=== PATIENT | male | born 1950 | race Hispanic/Latino ===

== ENCOUNTER 2020-11-22 17:52 | Emergency (ER) | payer SELFPAY ==
[2020-11-22 20:35] LABS: SARS-COV-2 RT PCR POSITIVE (NEGATIVE)
--- NOTE | 2020-11-22 22:03 | ER ---
Nurse's Notes [facility] [place] Name: Collin Peña Age: 70 yrs Sex: Male : 1950 Arrival Date: 11/22/2020 Time: 17:58 Bed Waiting Private MD: Diagnosis: Coronavirus infection, unspecified Presentation: 11/22 18:41 Chief complaint: Patient states: Congestion and decreased appetite that began 1 week ss ago. Pt reports mild cough. Coronavirus screen: Client denies travel out of the [place] in the last 14 days. Client presents with at least one sign or symptom that may indicate coronavirus-19. Standard/surgical mask placed on the client. Provider contacted for isolation considerations. Ebola Screen: Patient denies exposure to infectious person. Patient denies travel to an Ebola-affected area in the 21 days before illness onset. Initial Sepsis Screen: Does the patient meet any 2 criteria? No. Patient's initial sepsis screen is negative. Does the patient have a suspected source of infection? No. Patient's initial sepsis screen is negative. Risk Assessment: Do you want to hurt yourself or someone else? Patient reports no desire to harm self or others. Onset of symptoms was November 12, 2020. 18:41 Method Of Arrival: Ambulatory ss 18:41 Acuity: AMY 4 ss Historical: - Allergies: 18:42 No Known Allergies; ss - Home Meds: 18:42 None [Active]; ss - PMHx: 18:42 None; ss - PSHx: 18:42 None; ss - Immunization history:: Adult Immunizations up to date, Client reports receiving the 2nd dose of the Covid vaccine. - Social history:: Smoking status: Patient denies any tobacco usage or history of. Vital Signs: 18:43 BP 114 / 81; Pulse 103; Resp 16; Temp 98.1(TE); Pulse Ox 100% on R/A; Weight 63.5 kg; ss Pain 0/10; ED Course: 17:58 Patient arrived in ED. ds1 18:42 Triage completed. ss 18:42 Arm band placed on right wrist. ss 21:05 Aura Shrestha FNP-C [facility]. kb 21:05 Humberto Montoya MD is Attending Physician. kb Administered Medications: No medications were administered Outcome: 22:02 Discharge ordered by . azar 22:21 Patient left the ED. kb Signatures: Aura Shrestha, SHOP SUPERINTENDENT-C SHOP SUPERINTENDENT-Mariam Nelson ds1 Ingris Leos, RN RN ss
--- NOTE | 2020-11-22 22:03 | EDPHYS ---
Physician Documentation [facility] Name: Collin Peña Age: 70 yrs Sex: Male : 1950 Arrival Date: 11/22/2020 Time: 17:58 Bed Waiting Private MD: ED Physician Humberto Montoya HPI: 11/22 22:18 This 70 yrs old Male presents to ER via Ambulatory with complaints of kb Congestion, Decreased Appetite. 22:18 The patient or guardian reports cough, that is intermittent, described as mild, flu kb symptoms, no appetite. Onset: The symptoms/episode began/occurred 1 week(s) ago. Severity of symptoms: At their worst the symptoms were mild, in the emergency department the symptoms are unchanged. Modifying factors: The symptoms are alleviated by nothing, the symptoms are aggravated by nothing. Associated signs and symptoms: Pertinent positives: rhinorrhea, Pertinent negatives: chest pain, diarrhea, ear ache, fever, nausea, sore throat, vomiting. The patient has not experienced similar symptoms in the past. The patient has not recently seen a physician. Patient reports mild cough, runny nose/congestion, and decreased appetite for approximately 1 week. States he came to get checked for Covid.. Historical: - Allergies: 18:42 No Known Allergies; ss - Home Meds: 18:42 None [Active]; ss - PMHx: 18:42 None; ss - PSHx: 18:42 None; ss - Immunization history:: Adult Immunizations up to date, Client reports receiving the 2nd dose of the Covid vaccine. - Social history:: Smoking status: Patient denies any tobacco usage or history of. ROS: 22:18 Constitutional: Negative for fever, chills, and weight loss. kb 22:18 Constitutional: Positive for decreased appetite. 22:18 ENT: Positive for rhinorrhea, sinus congestion. 22:18 Respiratory: Positive for cough, Negative for dyspnea on exertion, hemoptysis, orthopnea, pleurisy, shortness of breath, sputum production, wheezing. 22:18 All other systems are negative. Exam: 22:18 Constitutional: This is a well developed, well nourished patient who is awake, alert, kb and in no acute distress. Head/Face: Normocephalic, atraumatic. ENT: Moist Mucous membranes Respiratory: Respirations even and unlabored. No increased work of breathing, no retractions or nasal flaring. Skin: Warm, dry with normal turgor. Normal color. MS/ Extremity: Pulses equal, no cyanosis. Neurovascular intact. Full, normal range of motion. Neuro: Awake and alert, GCS 15, oriented to person, place, time, and situation. Moves all extremities. Normal gait. Psych: Awake, alert, with orientation to person, place and time. Behavior, mood, and affect are within normal limits. Vital Signs: 18:43 BP 114 / 81; Pulse 103; Resp 16; Temp 98.1(TE); Pulse Ox 100% on R/A; Weight 63.5 kg; ss Pain 0/10; MDM: 22:02 Patient medically screened. kb 22:05 Data reviewed: vital signs, nurses notes. Data interpreted: Pulse oximetry: on room air kb is 100 %. Interpretation: normal. Counseling: I had a detailed discussion with the patient and/or guardian regarding: the historical points, exam findings, and any diagnostic results supporting the discharge/admit diagnosis, lab results, the need for outpatient follow up, a family practitioner, to return to the emergency department if symptoms worsen or persist or if there are any questions or concerns that arise at home. 11/22 18:46 Order name: Flu ss 11/22 20:36 Order name: COVID-19/FLU A+B; Complete Time: 21:05 EDMS Administered Medications: No medications were administered Disposition: 11/23 05:07 Co-signature as Attending Physician, Humberto Montoya MD. [email or web address] Disposition Summary: 11/22/20 22:02 Discharge Ordered Location: Home kb Condition: Stable kb Diagnosis - Coronavirus infection, unspecified kb Followup: kb - With: Emergency Department - When: As needed - Reason: Worsening of condition Followup: kb - With: Private Physician - When: 2 - 3 days - Reason: Recheck today's complaints, Continuance of care, Re-evaluation by your physician Discharge Instructions: - Discharge Summary Sheet kb - Viral Respiratory Infection, [id number] kb - COVID-19 kb Forms: - Medication Reconciliation Form kb - Thank You Letter kb - Antibiotic Education kb - Prescription Opioid Use kb Signatures: Dispatcher [employer] EDMS Aura Shrestha FNP-C FNP-Ckb Smirch, Shelby, RN RN ss Humberto Montoya MD MD [email or web address] Corrections: (The following items were deleted from the chart) 11/22 19:42 18:46 CORONAVIRUS+ ordered. EDMS EDMS 19:43 18:46 Influenza Screen (A ordered. EDMS EDMS
[2020-11-22 23:26] VITALS: BP 114/81; TEMP 98.1; O2SAT 100
== END 2020-11-22 22:21 | disposition home or self-care (01) ==
LOC: ER 17:52
DX: U07.1 COVID-19 (principal)
CPT/HCPCS: 0240U; 99281